=== PATIENT | female | born 1985 | race Caucasian/White ===

== ENCOUNTER → 2020-06-07 | Outpatient (REF) | payer OTHER | LOC: M SFHCWAGY 13:18 | PROVIDERS: ATTEND Advanced Practice Midwife | DX: Z12.4 Encounter for screening for malignant neoplasm of cervix (principal) | CPT/HCPCS: 87624; G0123; G0463 ==

== ENCOUNTER → 2020-06-09 | Outpatient (CLI) | payer OTHER | LOC: M PLALAB 08:59 | PROVIDERS: ATTEND Advanced Practice Midwife | DX: Z01.89 Encounter for other specified special examinations (principal) ==

== ENCOUNTER → 2021-06-08 | Outpatient (REF) | payer OTHER | LOC: M SFHCWAGY 13:23 | PROVIDERS: ATTEND Obstetrics & Gynecology | DX: Z12.4 Encounter for screening for malignant neoplasm of cervix (principal); R87.612 Low grade squamous intraepithelial lesion on cytologic smear of cervix (LGSIL) | CPT/HCPCS: 87624; G0123; G0463 ==